=== PATIENT | male | born 1970 | race Hispanic/Latino ===

== ENCOUNTER 2022-12-05 12:02 | Emergency (ER) | payer SELFPAY ==
[~2022-12-05] VITALS: Ht 162.6 cm; Wt 90.7 kg
[2022-12-05] MEDS ORDERED: CEFDINIR300 MG PO (13:25)
[2022-12-05] MEDS ORDERED: BROMPHENIR-PSE118 ML PO (13:25)
== END 2022-12-05 14:00 | disposition home or self-care (01) ==
LOC: FSED 13:13
DX: R05.9 Cough, unspecified (principal); J20.9 Acute bronchitis, unspecified; F17.210 Nicotine dependence, cigarettes, uncomplicated
CPT/HCPCS: 83518; 87400; 99282